=== PATIENT | female | born 1975 | race Caucasian/White ===

== ENCOUNTER → 2016-06-16 | Outpatient (CLI) | payer BC ==
[~2016-06-16] MED LIST: CETICHW4 PO; FLUT0.15 NAE; SERT-234 PO
[2016-06-16 16:43] LABS: BLOOD UREA NITROGEN 16 mg/dl (7-18); CALCIUM 8.7 mg/dl (8.5-10.1); CARBON DIOXIDE 27 mmol/L (21-32); CHLORIDE 108 mmol/L (98-107); CREATININE 0.74 mg/dl (0.60-1.20); GLUCOSE 87 mg/dl (70-99); POTASSIUM 4.5 mmol/L (3.5-5.1); SODIUM 140 mmol/L (136-145)
[2016-06-16 16:54] LABS: CHOLESTEROL 146 mg/dl (0-200); CHOLESTEROL/HDL RATIO 3.3; HDL CHOLESTEROL 44 mg/dl; LDL CHOLESTEROL CALCULATED 91 mg/dl; THYROID STIMULATING HORMONE 0.651 uIu/ml (0.300-4.500); TRIGLYCERIDES 53 mg/dl (0-150); VERY LOW DENSITY LIPOPROT CALC 11 mg/dl
== END | disposition home or self-care (01) ==
LOC: C.LABBFT 11:13
PROVIDERS: ATTEND Nurse Practitioner
DX: Z13.220 Encounter for screening for lipoid disorders (principal); H81.09 Meniere's disease, unspecified ear; R00.2 Palpitations

== ENCOUNTER → 2016-07-11 | Outpatient (CLI) | payer BC | END | disposition home or self-care (01) | LOC: C.PAPS 15:05 | PROVIDERS: ATTEND Nurse Practitioner | DX: Z01.419 Encounter for gynecological examination (general) (routine) without abnormal findings (principal) ==

== ENCOUNTER 2022-11-28 09:43 | Observation (INO) ==
--- NOTE | 2022-11-28 10:13 | Emergency Department Note ---
History of Present Illness General Chief complaint: Tachycardia Stated complaint: HIGH HR,FEELS "OFF",LIGHTHEADED,MIGRAINE, Time Seen by Provider: 11/28/22 09:52 History of Present Illness Maximum Pain Intensity: 5 46-year-old female presents emergency department with 1 day history of feeling under stress and light rotation and some nasal congestion and a sided slight headache. Patient denies fever. Patient states that she was under a lot of stress at work as they were understaffed. Patient is a [employer]. Patient denies any exposure to COVID. Patient denies abdominal pain denies chest pain denies significant shortness of breath. Patient was concerned due to palpitations and nasal congestion and being under stress. Home Medications Medication Instructions Recorded Confirmed Type triamcinolone acetonide 0.1 % See Rx Instructions topical BID 11/13/19 11/28/22 Rx topical cream PRN rash #30 grams fluticasone propionate 50 2 spray intranasal DAILY #9.9 grams 11/19/20 11/28/22 Rx mcg/actuation nasal spray,suspension (Allergy Relief (fluticasone)) hydroxyzine HCl 25 mg tablet See Rx Instructions PO TID PRN 06/27/22 11/28/22 Rx anxiety #90 tabs albuterol sulfate 90 mcg/actuation 2 puff inhalation QID PRN 08/07/22 11/28/22 Rx aerosol inhaler (ProAir HFA) shortness of breath #8.5 grams sertraline 100 mg tablet 100 mg PO DAILY #90 tabs 09/07/22 11/28/22 Rx acetaminophen 500 mg tablet 1,000 mg PO Q6H PRN Fever Or Pain 11/28/22 11/28/22 History (Tylenol Extra Strength) cetirizine 10 mg tablet (Zyrtec) 10 mg PO DAILY 11/28/22 11/28/22 History ibuprofen 200 mg tablet 400 mg PO Q6H PRN Fever Or Pain 11/28/22 11/28/22 History norethindrone 1.5 mg-ethinyl 1 tab PO DAILY 11/28/22 11/28/22 History estradiol 30 mcg(21)/iron 75 mg(7) tablet (Haley Fe 1.5/30 (28)) Allergies Allergy/AdvReac Type Severity Reaction Status Date / Time morphine Allergy Intermediate rash Verified 11/28/22 12:15 Past Med/Surg History Medical History Anxiety Asthma mild, w/ cold or allergy symptoms, rarely uses inhaler maybe once per year Dyshidrotic eczema Environmental and seasonal allergies Palpitations thinks was due to medication, wore holter monitor, no issues found Surgical History History of appendectomy History of carpal tunnel surgery History of foot surgery B/L Hx of colonoscopy Hx of tubal ligation Hx of wisdom tooth extraction Family History Mother Coronary heart disease Hypertension Myocardial infarction Father Cirrhosis with alcoholism Other No family history of adverse response to anesthesia Denies family history of Ovarian cancer Prostate cancer Breast cancer Colonic polyp Social History Smoking Status: Never smoker Second Hand Exposure: No; Do You Dip or Chew Tobacco: No; Hx Alcohol Use: Yes (ONCE PER MONTH) Hx Substance Use: No Preferred Language: Hebrew Communication Ability: Effective Hepatologist Required: No Beliefs That Will Affect Care: None marital status: Current Living Situation: Spouse current occupational status: employed Feels Safe at Home: Yes caffeine: Yes Dental Care, Regularly: Yes Assistive Devices: Glasses Review of Systems A total of 10 systems reviewed and were otherwise negative Constitutional: + chills and + body aches Cardiovascular: + palpitations Physical Exam Vital Signs Vital Signs - 24 hr 11/28/22 09:48 11/28/22 10:09 11/28/22 10:11 Temperature 37.1 C Temperature Source Temporal Artery Scan Pulse Rate 120 H 107 H Pulse Rate from SpO2 Sensor Pulse Rhythm Regular Respiratory Rate 20 Respiratory Depth Normal Blood Pressure 113/71 Blood Pressure Mean 85 Pulse Oximetry 98 Oxygen Delivery Method Room Air Room Air Sepsis Recent Fever Within 48 Hours No Sepsis New/Unexplained Change in Mental Status No Sepsis Action Taken by Nursing No Action Required 11/28/22 10:11 11/28/22 10:11 11/28/22 10:11 Temperature Temperature Source Oral Pulse Rate Pulse Rate from SpO2 Sensor Pulse Rhythm Respiratory Rate Respiratory Depth Blood Pressure Blood Pressure Mean Pulse Oximetry Oxygen Delivery Method Room Air Room Air Sepsis Recent Fever Within 48 Hours Sepsis New/Unexplained Change in Mental Status Sepsis Action Taken by Nursing 11/28/22 12:13 Temperature Temperature Source Pulse Rate 106 H Pulse Rate from SpO2 Sensor 106 H Pulse Rhythm Respiratory Rate 19 Respiratory Depth Blood Pressure 134/67 Blood Pressure Mean 89 Pulse Oximetry 97 Oxygen Delivery Method Sepsis Recent Fever Within 48 Hours Sepsis New/Unexplained Change in Mental Status Sepsis Action Taken by Nursing GENERAL: Patient is awake alert in no acute distress patient is resting comfortably; patient is anxious EYES: The conjunctivae are clear. The pupils are round and reactive. EARS, NOSE, MOUTH AND THROAT: The nose is without any evidence of any deformity. Mucous membranes are moist. Tongue is midline. Patient has rhinorrhea NECK: The neck is nontender and supple. RESPIRATORY: Normal respiratory effort is noted there is no evidence of wheezing rhonchi or rales CARDIOVASCULAR: Tachycardic but normal rhythm noted there no murmurs rubs or gallops normal S1 normal S2. GASTROINTESTINAL: The abdomen is soft. Abdomen is nontender. BACK: No midline tenderness or or step-off noted range of motion in flexion extension as well as rotation no signs of muscle spasm noted MUSCULOSKELETAL/EXTREMITIES: There is no evidence of gross deformity full range of motion is noted in the hips and shoulders. SKIN: There is no obvious evidence of any rash. There are no petechiae, pallor or cyanosis noted. NEUROLOGIC: Patient is awake alert and oriented x3 strength is symmetric Course Reevaluation(s) Reevaluation #1: Patient is resting in no distress on repeat examination. Time: 12:11 Consultations Consultation #1: Case was discussed with the [facility]ist for admission Time: 12:11 Administered Medications Potassium Chloride (K Antonino / Wtr) 10 meq in 100 mls @ 100 mls/hr IV Q1H [facility] Stop: 11/28/22 14:14 Last Admin: 11/28/22 12:27 Dose: 100 mls/hr Documented By: GRICEL Discontinued Medications Aspirin (Aspirin Chew 324 Mg) 324 mg PO NOW STA Stop: 11/28/22 12:00 Last Admin: 11/28/22 12:08 Dose: 324 mg Documented By: GRICEL Ioversol (Ioversol 350 Mg 125ml Prefilled Syringe) 118 ml IV ONCE ONE Stop: 11/28/22 11:38 Last Admin: 11/28/22 11:38 Dose: 118 ml Documented By: MARISELA Potassium Chloride (Potassium Chloride Crtab 20 Meq Tabcr) 40 meq PO NOW STA Stop: 11/28/22 12:15 Last Admin: 11/28/22 12:21 Dose: 40 meq Documented By: GRICEL Critical Care Time Critical Care Time: Yes Total Critical Care Time: 35 I have personally spent greater than 35 minutes of critical care time in the direct management of this patient. This includes bedside care, interpretation of diagnostic studies, and testing, discussion with consultants, patient, and family members, and other required patient management activities. These minutes are in excess of all separately billable procedures. Medical Decision Making Medical Records Attestation: I reviewed the patient's medical records. Home Medications Current Medication List: was personally reviewed by me Laboratory Data Attestation: I reviewed the patient's lab results. Patient has a mildly low potassium, patient has an elevated troponin and an elevated D-dimer 11/28/22 09:59 11/28/22 09:59 Lab Results 11/28/22 11/28/22 11/28/22 Range/Units 09:59 09:59 09:59 WBC 6.51 (4.8-10.8) K/ul RBC 4.51 (4.20-5.40) M/uL Hgb 13.5 (12.0-16.0) g/dl Hct 40.2 (37.0-47.0) % MCV 89.1 (80.0-100.0) fL MCH 29.9 (25.0-34.0) pg MCHC 33.6 (32.0-36.0) g/dL RDW Std Deviation 41.5 (36.4-46.3) fL RDW Coeff of Felicia 12.7 (11.5-14.5) % Plt Count 177 (130-400) K/uL MPV 10.3 (9.4-12.4) fL Immature Gran % (Auto) 0.3 % Neut % (Auto) 83.9 % Lymph % (Auto) 10.4 % [place] % (Auto) 5.1 % Eos % (Auto) 0.0 % Baso % (Auto) 0.3 % Neut # (Auto) 5.46 (1.40-6.50) K/uL Lymph # (Auto) 0.68 L (1.20-3.40) K/uL [place] # (Auto) 0.33 (0.11-0.59) K/uL Eos # (Auto) 0.00 (0.00-0.50) K/uL Baso # (Auto) 0.02 (0.00-0.20) K/uL Immature Gran # (Auto) 0.02 (0.01-0.20) K/uL PT 10.5 (9.0-12.0) Seconds INR 1.0 (0.9-1.1) APTT 27.1 (21.0-31.0) Seconds PTT Ratio 1.0 D-Dimer 6900 H* (0-500) ug/L FEU Sodium 135 L (136-145) mmol/L Potassium 3.2 L (3.5-5.1) mmol/L Chloride 102 (98-107) mmol/L Carbon Dioxide 24 (21-32) mmol/L Anion Gap 9 (3-11) BUN 5 L (6-23) mg/dl Creatinine 0.64 (0.6-1.2) mg/dl Est Cr Clr Drug Dosing 118.6 ml/min Est GFR ( Amer) 124.9 ml/min Est GFR (Non-Af Amer) 107.8 ml/min BUN/Creatinine Ratio 7.8 L (10-20) Glucose 114 H (70-99(Fasting)) mg/dl Lactate (0.4-2.0) mmol/L Calcium 9.0 (8.6-10.3) mg/dl Magnesium (1.7-2.4) mg/dl Total Bilirubin 0.4 (0.2-1.0) mg/dl AST 27 (13-39) U/L ALT 24 (7-52) U/L Alkaline Phosphatase 83 (34-104) U/L Troponin I High Sens 280.7 H* (0-14) pg/ml Total Protein 7.6 (6.0-8.3) gm/dl Albumin 4.2 (3.4-5.0) gm/dl Globulin 3.4 (2.5-4.0) gm/dl Albumin/Globulin Ratio 1.2 (0.9-2) TSH (0.300-4.500) uIu/ml SARS-CoV-2, RNA, NAAT (NEGATIVE) 11/28/22 11/28/22 11/28/22 Range/Units 09:59 09:59 10:00 WBC (4.8-10.8) K/ul RBC (4.20-5.40) M/uL Hgb (12.0-16.0) g/dl Hct (37.0-47.0) % MCV (80.0-100.0) fL MCH (25.0-34.0) pg MCHC (32.0-36.0) g/dL RDW Std Deviation (36.4-46.3) fL RDW Coeff of Felicia (11.5-14.5) % Plt Count (130-400) K/uL MPV (9.4-12.4) fL Immature Gran % (Auto) % Neut % (Auto) % Lymph % (Auto) % [place] % (Auto) % Eos % (Auto) % Baso % (Auto) % Neut # (Auto) (1.40-6.50) K/uL Lymph # (Auto) (1.20-3.40) K/uL [place] # (Auto) (0.11-0.59) K/uL Eos # (Auto) (0.00-0.50) K/uL Baso # (Auto) (0.00-0.20) K/uL Immature Gran # (Auto) (0.01-0.20) K/uL PT (9.0-12.0) Seconds INR (0.9-1.1) APTT (21.0-31.0) Seconds PTT Ratio D-Dimer (0-500) ug/L FEU Sodium (136-145) mmol/L Potassium (3.5-5.1) mmol/L Chloride (98-107) mmol/L Carbon Dioxide (21-32) mmol/L Anion Gap (3-11) BUN (6-23) mg/dl Creatinine (0.6-1.2) mg/dl Est Cr Clr Drug Dosing ml/min Est GFR ( Amer) ml/min Est GFR (Non-Af Amer) ml/min BUN/Creatinine Ratio (10-20) Glucose (70-99(Fasting)) mg/dl Lactate 1.0 (0.4-2.0) mmol/L Calcium (8.6-10.3) mg/dl Magnesium (1.7-2.4) mg/dl Total Bilirubin (0.2-1.0) mg/dl AST (13-39) U/L ALT (7-52) U/L Alkaline Phosphatase (34-104) U/L Troponin I High Sens (0-14) pg/ml Total Protein (6.0-8.3) gm/dl Albumin (3.4-5.0) gm/dl Globulin (2.5-4.0) gm/dl Albumin/Globulin Ratio (0.9-2) TSH 0.804 (0.300-4.500) uIu/ml SARS-CoV-2, RNA, NAAT NEGATIVE (NEGATIVE) 11/28/22 Range/Units 12:14 WBC (4.8-10.8) K/ul RBC (4.20-5.40) M/uL Hgb (12.0-16.0) g/dl Hct (37.0-47.0) % MCV (80.0-100.0) fL MCH (25.0-34.0) pg MCHC (32.0-36.0) g/dL RDW Std Deviation (36.4-46.3) fL RDW Coeff of Felicia (11.5-14.5) % Plt Count (130-400) K/uL MPV (9.4-12.4) fL Immature Gran % (Auto) % Neut % (Auto) % Lymph % (Auto) % [place] % (Auto) % Eos % (Auto) % Baso % (Auto) % Neut # (Auto) (1.40-6.50) K/uL Lymph # (Auto) (1.20-3.40) K/uL [place] # (Auto) (0.11-0.59) K/uL Eos # (Auto) (0.00-0.50) K/uL Baso # (Auto) (0.00-0.20) K/uL Immature Gran # (Auto) (0.01-0.20) K/uL PT (9.0-12.0) Seconds INR (0.9-1.1) APTT (21.0-31.0) Seconds PTT Ratio D-Dimer (0-500) ug/L FEU Sodium (136-145) mmol/L Potassium (3.5-5.1) mmol/L Chloride (98-107) mmol/L Carbon Dioxide (21-32) mmol/L Anion Gap (3-11) BUN (6-23) mg/dl Creatinine (0.6-1.2) mg/dl Est Cr Clr Drug Dosing ml/min Est GFR ( Amer) ml/min Est GFR (Non-Af Amer) ml/min BUN/Creatinine Ratio (10-20) Glucose (70-99(Fasting)) mg/dl Lactate (0.4-2.0) mmol/L Calcium (8.6-10.3) mg/dl Magnesium 1.8 (1.7-2.4) mg/dl Total Bilirubin (0.2-1.0) mg/dl AST (13-39) U/L ALT (7-52) U/L Alkaline Phosphatase (34-104) U/L Troponin I High Sens 243.6 H* (0-14) pg/ml Total Protein (6.0-8.3) gm/dl Albumin (3.4-5.0) gm/dl Globulin (2.5-4.0) gm/dl Albumin/Globulin Ratio (0.9-2) TSH (0.300-4.500) uIu/ml SARS-CoV-2, RNA, NAAT (NEGATIVE) Imaging Data Attestation: I personally reviewed and interpreted this imaging study as follows: My Impression: Chest x-ray interpreted by me negative for infiltrate Radiologist's Impression: Chest X-Ray 11/28/22 09:51 XR chest 1V portable HISTORY: Chest pain, nonspecific COMPARISON: None. FINDINGS: The lungs are clear. Cardiac silhouette is normal in size. No pleural effusions. No pneumothorax. IMPRESSION: No acute process. ACT 112: Negative or not required by law. Electronically signed by: Fermin Blanco M.D. 11/28/2022 10:33 AM Chest CTA 11/28/22 11:08 CT angio chest PE protocol CLINICAL HISTORY: PE TECHNIQUE: Multidetector row helical CT of the chest was performed with angiographic protocol. Coronal and sagittal reformations were obtained. Coronal and sagittal MIPS were obtained from the axial data set and were submitted for review. Automated dose lowering techniques and/or adjustment according to patient size were utilized for this exam. CT DOSE: 581.12 mGy.cm Comparison: Comparison is made to chest radiograph 11/28/2022 FINDINGS: Lungs and pleura: Normal. Heart and pericardium: Heart size is normal. No pericardial effusion. Vessels: No evidence of pulmonary embolism. Mediastinum and [place]: Unremarkable. Chest wall and lower neck: Unremarkable. Abdomen: Unremarkable. Bones: Unremarkable. IMPRESSION: No acute abnormality and in particular no evidence of pulmonary embolus. ACT 112: Negative or not required by law. Electronically signed by: Wyatt Oakley M.D. 11/28/2022 11:54 AM ECG Data Attestation: I personally reviewed and interpreted this ECG as follows: Additional Comments: EKG interpreted by me sinus tachycardia rate of 107, normal's, normal axis, no obvious ST segment elevation or depression Telemetry was ordered by me interpreted as sinus tachycardia rate of 107 MDM Narrative Medical decision making differential diagnosis includes cardiac dysrhythmia, electrolyte abnormality, viral syndrome, upper respiratory tract infection, COVID, cardiac event, anxiety Plan is to check sepsis labs, EKG, troponin, D-dimer Patient has an elevated troponin and elevated D-dimer however has a CT angio that is negative for pulmonary embolism Patient has an EKG that sinus tach however there is no obvious ST segment elevation or depression, the etiology of the elevated troponin is unknown may be due to demand ischemia Plan is to admit, patient was given an aspirin HEART score is 3 Impression & Plan Sinus tachycardia, Palpitations, Elevated troponin Discharge Plan Visit Data Chief Complaint: Tachycardia Stated Complaint: HIGH HR,FEELS "OFF",LIGHTHEADED,MIGRAINE, ED Provider: David Rich Discharge Problem: Sinus tachycardia, Palpitations, Elevated troponin Patient Disposition: Admitted As Inpatient Discharge Instructions Interventions: ED Discharge Assessment Last Done: 11/28/22 12:38
[2022-11-28 10:24] LABS: Basophils # (auto) 0.02 K/uL (0.00-0.20); Basophils % (auto) 0.3 %; Hematocrit (blood only) 40.2 % (37.0-47.0); Hemoglobin 13.5 g/dl (12.0-16.0); Immature Granulocytes # (auto) 0.02 K/uL (0.01-0.20); Immature Granulocytes % (auto) 0.3 %; Lymphocytes # (auto) 0.68 K/uL (1.20-3.40); Lymphocytes % (auto) 10.4 %; Mean Corpuscular Hemoglobin 29.9 pg (25.0-34.0); Mean Corpuscular Hgb Conc 33.6 g/dL (32.0-36.0); Mean Corpuscular Volume 89.1 fL (80.0-100.0); Mean Platelet Volume 10.3 fL (9.4-12.4); Monocytes # (auto) 0.33 K/uL (0.11-0.59); Monocytes % (auto) 5.1 %; Neutrophils # (auto) 5.46 K/uL (1.40-6.50); Neutrophils % (auto) 83.9 %; Platelet Count 177 K/uL (130-400); RDW Coefficient of Variation 12.7 % (11.5-14.5); RDW Standard Deviation 41.5 fL (36.4-46.3); Red Blood Count 4.51 M/uL (4.20-5.40); White Blood Count 6.51 K/ul (4.8-10.8)
--- NOTE | 2022-11-28 10:34 | XRay Report ---
XR chest 1V portable HISTORY: Chest pain, nonspecific COMPARISON: None. FINDINGS: The lungs are clear. Cardiac silhouette is normal in size. No pleural effusions. No pneumot horax. IMPRESSION: No acute process. ACT 112: Negative or not required by law. Electronically signed by: Fermin Blanco M.D. 11/28/2022 10:33 AM
[2022-11-28 10:44] LABS: Alanine Aminotransferase 24 U/L (7-52); Albumin Globulin Ratio 1.2 (0.9-2); Albumin Level 4.2 gm/dl (3.4-5.0); Alkaline Phosphatase 83 U/L (34-104); Anion Gap 9 (3-11); Aspartate Aminotransferase 27 U/L (13-39); BUN Creatinine Ratio 7.8 (10-20); Bilirubin,Total 0.4 mg/dl (0.2-1.0); Blood Urea Nitrogen 5 mg/dl (6-23); Carbon Dioxide 24 mmol/L (21-32); Chloride 102 mmol/L (98-107); Creatinine Clr Calc Pharmacy 118.6 ml/min; Est GFR (African American) 124.9 ml/min; Est GFR (Non-African American) 107.8 ml/min; Globulin 3.4 gm/dl (2.5-4.0); Glucose 114 mg/dl (70-99(Fasting)); Potassium 3.2 mmol/L (3.5-5.1); Sodium 135 mmol/L (136-145); Total Protein 7.6 gm/dl (6.0-8.3)
[2022-11-28 10:58] LABS: Troponin I High Sensitivity 280.7 pg/ml (0-14)
[2022-11-28 11:01] LABS: Partial Thromboplastin Time 27.1 Seconds (21.0-31.0); Prothrombin Time 10.5 Seconds (9.0-12.0)
[2022-11-28 11:04] LABS: D Dimer 6900 ug/L FEU (0-500)
[2022-11-28] MEDS ORDERED: IOVERSOL 350 MG 125mL Prefilled Syringe IV ONE (11:37)
--- NOTE | 2022-11-28 11:56 | CT Scan Report ---
CT angio chest PE protocol CLINICAL HISTORY: PE TECHNIQUE: Multidetector row helical CT of the chest was performed with angiographic protocol. [place] l and sagittal reformations were obtained. Coronal and sagittal MIPS were obtained from the axial gail a set and were submitted for review. Automated dose lowering techniques and/or adjustment according to patient size were utilized for this exam. CT DOSE: 581.12 mGy.cm Comparison: Comparison is made to chest radiograph 11/28/2022 FINDINGS: Lungs and pleura: Normal. Heart and pericardium: Heart size is normal. No pericardial effusion. Vessels: No evidence of pulmonary embolism. Mediastinum and [place]: Unremarkable. Chest wall and lower neck: Unremarkable. Abdomen: Unremarkable. Bones: Unremarkable. IMPRESSION: No acute abnormality and in particular no evidence of pulmonary embolus. ACT 112: Negative or not required by law. Electronically signed by: Wyatt Oakley M.D. 11/28/2022 11:54 AM
[2022-11-28] MEDS ORDERED: ASPIRIN CHEW 324 MG PO STA (11:59)
[2022-11-28] MEDS ORDERED: POTASSIUM CHLORIDE CRTAB 20 MEQ TABCR PO STA (12:14)
--- NOTE | 2022-11-28 12:19 | History & Physical Report ---
Date of Service November 28, 2022 Assessment & Plan (1) Elevated troponin: Plan: -Admit to med/tele -Currently stable with HR in the high 90's- low 100's -Initial high sen trop elevated at 280, repeat 2 hour trop at 240 -ECG shows sinus tachycardia without acute ST segment or t-wave changes -At this time the etiology of her elevated trop appears more associated with demand than ACS -CTA of the chest was negative for PE, no ischemic changes on ECG, patient's tr op is trending down -S/P 324 mg Aspirin in the ED -Patient with minimal chest tightness in the left upper chest at this time -Will obtain STAT TTE for further assessment -Will consult cardiology for further assistance and need for possible stress test -Will place 0.25 inches of 2% nitroglycerine paste to see if this gives her relief of her chest tightness -Continue to monitor on tele, will continue to trend trops in 6 hours to ensure it's still downtrending -SQ lovenox for DVT PPX -HH diet -AM CBC, BMP, PT/INR (2) Sinus tachycardia: Plan: -Has been in sinus tachycardia with HR in the high 90's-120's since arrival -Unsure of the etiology at this time but the differential includes, dehydration, hypokalemia, ACS, CHF, discomfort due to headache/migraine, and anxiety -Potassium found to be 3.2, mag obtained on admission is 1.8 -TSH added on admission is in process, nikita follow up -Will give 40 meq PO KCL and 10 meq IV KCL x 2 doses now -Will also give 2gm IV mag sulfate for low-normal mag level, hypokalemia, and migraine -Will order 1L LR bolus now and allow her to eat -Monitor on tele, will follow up on TTE (3) Headache: Plan: -Likely due to stress, will obtain full respiratory biofire for further evaluation -No focal neuro defects on exam and patient denies other neurologic symptoms -Will give 650 mg PO Tylenol, 2gm IV mag sulfate, and 1L LR, monitor for improvement (4) Hypokalemia: Plan: -3.2 in the ED -Unsure of etiology, may be due to poor oral intake as she is not on diuretics -Will give 10 meq IV KCL x 2 doses and 40 meq PO KCL on admission -Will give 2gm IV mag sulfate on admission -Monitor am electrolytes (5) Symptomatic menopausal or female climacteric states: Plan: -Continue control for menopausal symptoms (6) Asthma: Plan: -Prn Xopenex for wheezing to prevent further tachycardia for now (7) Anxiety: Plan: -Continue sertraline Plan The patient was discussed with Dr. Talbert at the time of the admission History of Present Illness Chief Complaint: Tachycardia, URI symptoms Primary Care Provider: BRYSON Hernandez Katja is a 46 year old female with a PMH significant for asthma, ADHD, anxiety, and meniere's disease who presented to the [facility] ED on 11/28 with complaints of generalized fatigue, chills, and palpitations. In the ED the patient was noted to be tachycardic with HR in the 120's but otherwise stable. Labs were significant for a lymphocyte count of 0.65, D-Dimer of 6900, potassium of 3.2, and initial high sen trop of 280. Chest xray was read as "No acute process.". CTA of the chest with PE protocol was read as "No acute abnormality and in particular no evidence of pulmonary embolus.". ECG showed sinus tachycardia without acute ST segment or T-wave changes. Prior to admission the patient was given 324 mg Aspirin. We were asked to admit the patient for ongoing evaluation and treatment of tachycardia and elevated troponin level. At the time of the exam the patient was sitting in bed in no acute distress. She states that she has been more stressed recently as she has been very busy at work as a [employer], they have been understaffed. She started to develop what she describes as a left sided headache/migraine approximately 24 hours ago. Her headache is located on the left front aspect of her head. She has been nauseous at times but denies vomiting. She denies changes in vision, hearing, taste, and smell. She denies recent vision changes and paresthesias. She has noticed her headache moving down into her left neck but denies radiation of the pain anywhere else. She has used tylenol and ibuprofen for her pain with minimal improvement. She feels as though this headache/migraine is more severe than her normal ones. She started to develop heart palpitations/tachycardia which began last night. She states that while these palpitations occurred she experienced left-sided chest tightness/discomfort. She is unsure if the left-sided neck pain is related to her headache or chest discomfort. She currently has mild, 1-2, chest tightness in the left chest at this time. She denies a previous hx of cardiac disease, palpitations, or hx of sudden cardiac before the age of 50 in her family. She denies alcohol and tobacco use as well. Her only recent medication change is an increase in the dose of her control approximately 3 weeks ago. This is to help with controlling hot flashes. Please refer to Dr. Talbert's attestation for any changes to the treatment plan Allergies Allergy/AdvReac Type Severity Reaction Status Date / Time morphine Allergy Intermediate rash Verified 11/28/22 12:15 Home Medications Medication Instructions Recorded Confirmed Type triamcinolone acetonide 0.1 % See Rx Instructions topical BID 11/13/19 11/28/22 Rx topical cream PRN rash #30 grams fluticasone propionate 50 2 spray intranasal DAILY #9.9 grams 11/19/20 11/28/22 Rx mcg/actuation nasal spray,suspension (Allergy Relief (fluticasone)) hydroxyzine HCl 25 mg tablet See Rx Instructions PO TID PRN 06/27/22 11/28/22 Rx anxiety #90 tabs albuterol sulfate 90 mcg/actuation 2 puff inhalation QID PRN 08/07/22 11/28/22 Rx aerosol inhaler (ProAir HFA) shortness of breath #8.5 grams sertraline 100 mg tablet 100 mg PO DAILY #90 tabs 09/07/22 11/28/22 Rx acetaminophen 500 mg tablet 1,000 mg PO Q6H PRN Fever Or Pain 11/28/22 11/28/22 History (Tylenol Extra Strength) cetirizine 10 mg tablet (Zyrtec) 10 mg PO DAILY 11/28/22 11/28/22 History ibuprofen 200 mg tablet 400 mg PO Q6H PRN Fever Or Pain 11/28/22 11/28/22 History norethindrone 1.5 mg-ethinyl 1 tab PO DAILY 11/28/22 11/28/22 History estradiol 30 mcg(21)/iron 75 mg(7) tablet (Haley Fe 1.5/30 (28)) Past Med/Surg History Medical History Anxiety Asthma mild, w/ cold or allergy symptoms, rarely uses inhaler maybe once per year Dyshidrotic eczema Environmental and seasonal allergies Palpitations thinks was due to medication, wore holter monitor, no issues found Surgical History History of appendectomy History of carpal tunnel surgery History of foot surgery B/L Hx of colonoscopy Hx of tubal ligation Hx of wisdom tooth extraction Family History Mother Coronary heart disease Hypertension Myocardial infarction Father Cirrhosis with alcoholism Other No family history of adverse response to anesthesia Denies family history of Ovarian cancer Prostate cancer Breast cancer Colonic polyp Social History Smoking Status: Never smoker Second Hand Exposure: No; Do You Dip or Chew Tobacco: No; Hx Alcohol Use: Yes (ONCE PER MONTH) Hx Substance Use: No Preferred Language: Icelandic Communication Ability: Effective Grain Loader Required: No Beliefs That Will Affect Care: None marital status: Current Living Situation: Spouse current occupational status: employed Feels Safe at Home: Yes caffeine: Yes Dental Care, Regularly: Yes Assistive Devices: Glasses Physical Exam Physical Exam: Physical Exam: General: In no acute distress, stated age, well-nourished, good hygiene HEENT: Normocephalic, atraumatic, no scleral icterus, pupils around round, symmetrical, and reactive to light, no tenderness to palpation of the frontal or maxillary sinuses, moist mucus membranes, trachea midline, no thyromegaly Chest/Pulm: No respiratory distress, symmetrical chest expansion, clear breath sounds throughout Cardiac: RRR, no murmurs noted Abdomen: Negative for ascites and bruising, normoactive bowel sounds, soft, non-tender to palpation throughout Musculoskeletal: Symmetrical and without signs of acute trauma, upper and lower extremities with full ROM, no atrophy, spasticity, or flaccidity Extremities: Radial, dorsalis pedis, and posterior tibial pulses are intact and symmetrical, no edema noted in the BL LE's Skin: Warm, dry, no rashes , lesions, or scars noted Neuro: Alert and oriented to person, place, month, year, and president, no focal defects, CN II-XII tested and intact, patient did experience an intermittent episode of vertigo during EOM testing, finger to nose test negative, no tremors noted Psych: No acute distress, calm and cooperative during the exam Results & Data Results & Data Vital Signs (Past 12 Hours) Vital Signs Temp Pulse Resp BP Pulse Ox O2 Del Method 11/28/22 10:11 Room Air 11/28/22 10:11 Room Air 11/28/22 10:11 Room Air 11/28/22 10:09 107 H 11/28/22 09:48 37.1 C 120 H 20 113/71 98 Room Air Laboratory Results Abnormal lab results 11/28/22 11/28/22 11/28/22 Range/Units 09:59 09:59 09:59 Lymph # (Auto) 0.68 L (1.20-3.40) K/uL D-Dimer 6900 H* (0-500) ug/L FEU Sodium 135 L (136-145) mmol/L Potassium 3.2 L (3.5-5.1) mmol/L BUN 5 L (6-23) mg/dl BUN/Creatinine Ratio 7.8 L (10-20) Glucose 114 H (70-99(Fasting)) mg/dl Troponin I High Sens 280.7 H* (0-14) pg/ml 11/28/22 Range/Units 12:14 Lymph # (Auto) (1.20-3.40) K/uL D-Dimer (0-500) ug/L FEU Sodium (136-145) mmol/L Potassium (3.5-5.1) mmol/L BUN (6-23) mg/dl BUN/Creatinine Ratio (10-20) Glucose (70-99(Fasting)) mg/dl Troponin I High Sens 243.6 H* (0-14) pg/ml Diagnostic Findings Chest X-Ray 11/28/22 09:51 XR chest 1V portable HISTORY: Chest pain, nonspecific COMPARISON: None. FINDINGS: The lungs are clear. Cardiac silhouette is normal in size. No pleural effusions. No pneumothorax. IMPRESSION: No acute process. ACT 112: Negative or not required by law. Electronically signed by: Fermin Blanco M.D. 11/28/2022 10:33 AM Chest CTA 11/28/22 11:08 CT angio chest PE protocol CLINICAL HISTORY: PE TECHNIQUE: Multidetector row helical CT of the chest was performed with angiographic protocol. Coronal and sagittal reformations were obtained. Coronal and sagittal MIPS were obtained from the axial data set and were submitted for review. Automated dose lowering techniques and/or adjustment according to patient size were utilized for this exam. CT DOSE: 581.12 mGy.cm Comparison: Comparison is made to chest radiograph 11/28/2022 FINDINGS: Lungs and pleura: Normal. Heart and pericardium: Heart size is normal. No pericardial effusion. Vessels: No evidence of pulmonary embolism. Mediastinum and [place]: Unremarkable. Chest wall and lower neck: Unremarkable. Abdomen: Unremarkable. Bones: Unremarkable. IMPRESSION: No acute abnormality and in particular no evidence of pulmonary embolus. ACT 112: Negative or not required by law. Electronically signed by: Wyatt Oakley M.D. 11/28/2022 11:54 AM ECG Additional Comments: Sinus tachycardia Otherwise normal ECG No previous ECGs available Code Status & VTE Plan Code Status Full code VTE Prophylaxis Plan VTE Prophylaxis will be ordered: Yes Supervising Physician Co-Signing Physician Notes Patient seen and examined, chart reviewed, case discussed with Leo Aj PA-C and I agree with the assessment and plan as above except as otherwise noted Labs and images reviewed 46-year-old female history of asthma, ADHD, Mnire's disease who presents with fever, chills, palpitations. Sinus tachycardia. Elevated D-dimer and troponin on admission. CT with no evidence of PE. EKG without ST segment or T wave changes. Patient recommended for admission for cardiac evaluation and echo. Patient reports that she has been under increased stress at work. Developed a left-sided headache which extended into her left head and neck and then subsequ ently developed chest pain. No vision changes/neurologic deficits. Notes that pain is worsened by taking a deep breath which causes her to cough, no sputum production. Last night had palpitations with left-sided chest discomfort.? Viral illness, low overall suspicion for ACS. Patient reports at time of admitting exam pain has greatly improved but was still 12/10. No tobacco use. No family history of early ME. Lungs are clear, heart rate is slightly tachycardic and regular. No lower extremity edema. Agree with recommendations as above including continued ischemic assessment for elevated troponin and chest pain. Echo is pending, cardiology consulted. Agree with recommendations and management as above PG Care Time/CCT Total # of Minutes Spent Total Time Spent with Patient: Total time spent is greater than 50% in coordination of care (as documented) at patient's floor/unit and/or counseling patient: C[place] [address] INT INP/OBS CARE 3/75MIN Patient Type Established Medical Decision Making High Complexity Diagnoses Elevated troponin R77.8 Sinus tachycardia R00.0 Headache R51.9 Hypokalemia E87.6 Symptomatic menopausal or female climacteric states N95.1 Asthma J45.909 Anxiety F41.9
[2022-11-28] MEDS ORDERED: LACTATED RINGER'S 1,000 ML IV ONE (12:21)
[2022-11-28] MEDS: POTASSIUM CHLORIDE / WTR 10 MEQ/100 ML PLCT IV SCH ×2 (12:27→13:58)
[2022-11-28] MEDS ORDERED: ACETAMINOPHEN 325 MG TAB PO STA (12:40)
[2022-11-28 12:46] LABS: Magnesium 1.8 mg/dl (1.7-2.4)
[2022-11-28 12:53] LABS: Troponin I High Sensitivity 243.6 pg/ml (0-14)
[2022-11-28] MEDS ORDERED: NITROGLYCERIN 2% OINTMENT 30GM TUBE EXT ONE (13:08)
[2022-11-28 14:30] LABS: Adenovirus PCR Not Detected (NotDetected); Bordetella parapertussis PCR Not Detected (NotDetected); Bordetella pertussis PCR Not Detected (NotDetected); Chlamydia pneumoniae PCR Not Detected (NotDetected); Coronavirus 229E PCR Not Detected (NotDetected); Coronavirus CoV-2 (COVID19)PCR Not Detected (NotDetected); Coronavirus HKU1 PCR Not Detected (NotDetected); Coronavirus NL63 PCR Not Detected (NotDetected); Coronavirus OC43PCR Not Detected (NotDetected); Human Metapneumovirus PCR Not Detected (NotDetected); Influenza A PCR Not Detected (NotDetected); Influenza B PCR Not Detected (NotDetected); Mycoplasma pneumoniae PCR Not Detected (NotDetected); Parainfluenza Virus 1 PCR Not Detected (NotDetected); Parainfluenza Virus 2 PCR Not Detected (NotDetected); Parainfluenza Virus 3 PCR Not Detected (NotDetected); Parainfluenza Virus 4 PCR Not Detected (NotDetected); Respiratory Syncytial VirusPCR Not Detected (NotDetected); Rhinovirus/Enterovirus PCR Not Detected (NotDetected)
--- NOTE | 2022-11-28 15:00 | XCELERA ---
[id number] \\[id number]
[2022-11-28] MEDS: MAGNESIUM SULFATE / D5W 1 GM/100 ML BAG IV SCH ×2 (16:11→17:14)
--- NOTE | 2022-11-28 16:31 | Cardiology Consultation ---
Date of Consultation November 28, 2022 Assessment & Plan (1) Sinus tachycardia: (2) Headache: (3) Asthma: (4) Palpitations: Plan Katja is a 46 y/o female with PMHx of Asthma, ADHD, anxiety, Meniere's disease, and Menopausal symptoms managed with OCPs (dose increased ~3 weeks ago) that comes to the ED due to chest discomfort, palpitations, and tiredness. On evaluation, she is found to be alone, ill-appearing, tired, afebrile, calm, AAOx3, and in no acute distress. Given the patient's EKG and TTE was relatively normal and only displaying sinus tachycardia, it's unlikely the patient's troponin increase came as a consequence to ACS and myocardial ischemia. Her symptoms may suggest a possible URI with impact and exacerbating her pre- existing asthma. DDx may also include asthma-induced muscle spasms and headaches. I would recommend conservative management.. Supervising Physician Co-Signing Physician Notes I saw and examined the patient with Dr. Martin and agree with the documentation above. Briefly, the patient presented with fairly diffuse symptoms including headache, fatigue, neck and chest discomfort. She also reported some sense of palpitation. She did have elevated cardiac biomarkers, but no other objective findings to suggest an acute coronary syndrome. Her history is not consistent with an acute coronary syndrome. Despite continuous chest discomfort there has been no significant change in her cardiac biomarkers. The elevation could be attributed to many factors to include a viral illness. Her echocardiogram was comforting in the fact that the overall LV function and wall motion were normal. I would treat her according to symptoms. I do not believe she requires any further cardiac evaluation. Circumstances of this nature we generally recommend activity limitation for at least 6 weeks. This would include no vigorous or strenuous aerobic activity. She has a very mild sinus tachycardia. This is not represent a primary cardiac problem given the overall normal function. Noncardiac etiologies to include pain dehydration etc. can be explored. History of Present Illness Attending Physician: Jagdeep Talbert MD History of Present Illness Katja is a 46 y/o female with PMHx of Asthma, ADHD, anxiety, Meniere's disease, and Menopausal symptoms managed with OCPs (dose increased ~3 weeks ago) that comes to the ED due to chest discomfort, palpitations, and tiredness. Yesterday morning (11/27/22) she began to have left sided headaches that are band-like and has an average of 5/10 in intensity. Associated to this she has been experiencing nausea, tiredness, left-sided chest tightness, left-sided neck tightness, and coughing that occurs when she takes a deep breath. She has tried to control her headaches using Tylenol and Ibuprofen with no success, and she tried to use her Albuterol rescue inhaler to try and relieve her chest tightness also without success. Her headache was not preceded by an aura such as vision changes or any other changes. Due to her feeling ill and her nausea, she has not been able to eat very well and has not drunk a lot of water, but has consumed amado lucas. She has been using an at-home pulse ox machine since she started feeling ill, and noticed that her pulse was ranging between 100 and 130, which prompted her to call her PCPs office to schedule and appointment for evaluation, but when she told them she was also experiencing chest discomfort, they advised her to come to the ED instead. On arrival, she was noted to be tachycardic in the 120s but was clinically stable. D-dimer was ordered due to her Hx of OCP use, which was elevated at 6900. CTA was negative for PE and CXR was negative fo r an acute process. EKG performed in the ED was also ordered which showed sinus tachycardia with a rate of 107, but no ST segment elevations or depressions or significant T wave abnormalities. Troponins were slightly elevated at 280.7 and decreased to 243.6 after a few hours. On our evaluation, patient appeared to be tired, afebrile, alert, oriented in all spheres, and in no acute distress. She referred feeling tired and took some time to gather her thoughts when she was giving her history. 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 She has no known sick contacts and has not traveled recently. Currently, she refers having some mild chest discomfort that she could not describe very accurately, but does mention it feels like some tightness similar as to what she has been feeling since yesterday. She also has a more mild form of the headache she has been experiencing since yesterday with associated nausea. She denies any history of similar chest pain/discomfort or heart disease. She also denies using any new medications or illicit substances, and has not smoked tobacco. Allergies Allergy/AdvReac Type Severity Reaction Status Date / Time morphine Allergy Intermediate rash Verified 11/28/22 12:15 Home Medications Medication Instructions Recorded Confirmed Type triamcinolone acetonide 0.1 % See Rx Instructions topical BID 11/13/19 11/28/22 Rx topical cream PRN rash #30 grams fluticasone propionate 50 2 spray intranasal DAILY #9.9 grams 11/19/20 11/28/22 Rx mcg/actuation nasal spray,suspension (Allergy Relief (fluticasone)) hydroxyzine HCl 25 mg tablet See Rx Instructions PO TID PRN 06/27/22 11/28/22 Rx anxiety #90 tabs albuterol sulfate 90 mcg/actuation 2 puff inhalation QID PRN 08/07/22 11/28/22 Rx aerosol inhaler (ProAir HFA) shortness of breath #8.5 grams sertraline 100 mg tablet 100 mg PO DAILY #90 tabs 09/07/22 11/28/22 Rx acetaminophen 500 mg tablet 1,000 mg PO Q6H PRN Fever Or Pain 11/28/22 11/28/22 History (Tylenol Extra Strength) cetirizine 10 mg tablet (Zyrtec) 10 mg PO DAILY 11/28/22 11/28/22 History ibuprofen 200 mg tablet 400 mg PO Q6H PRN Fever Or Pain 11/28/22 11/28/22 History norethindrone 1.5 mg-ethinyl 1 tab PO DAILY 11/28/22 11/28/22 History estradiol 30 mcg(21)/iron 75 mg(7) tablet (Haley Fe 1.5/30 (28)) Patient History Medical History Anxiety Asthma mild, w/ cold or allergy symptoms, rarely uses inhaler maybe once per year Dyshidrotic eczema Environmental and seasonal allergies Palpitations thinks was due to medication, wore holter monitor, no issues found Surgical History History of appendectomy History of carpal tunnel surgery History of foot surgery B/L Hx of colonoscopy Hx of tubal ligation Hx of wisdom tooth extraction Family History Mother Coronary heart disease Hypertension Myocardial infarction Father Cirrhosis with alcoholism Other No family history of adverse response to anesthesia Denies family history of Ovarian cancer Prostate cancer Breast cancer Colonic polyp Social History Smoking Status: Never smoker Second Hand Exposure: No; Do You Dip or Chew Tobacco: No; Hx Alcohol Use: Yes (ONCE PER MONTH) Hx Substance Use: No Preferred Language: Montenegrin Communication Ability: Effective 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 Physical Exam Physical Exam: General: ill-appearing, tired, afebrile, well hydrated, calm, alert, oriented in all spheres, no acute distress HEENT: SHAUN, EOM intact, anicteric sclera, no conjunctival injection, nasal congestion, no thyromegaly, trachea midline Chest: symmetric expansions with respirations, no abnormalities to percussion, no pain on palpation of chest wall, no deformity or discoloration to suggest trauma Respiratory: CTA bilaterally, no respiratory distress Cardio: RRR, no rubs/murmurs/gallops, no chest pain when sitting up vs laying down Abdominal: soft and depressible, somewhat distended, non-tender in all four quadrants, active bowel sounds, no suprapubic tenderness Extremity: no swelling and negative Homans's bilaterally, no visible deformity, no cyanosis or discoloration, no changes in temperature Skin: warm, slightly clammy skin, pink Results & Data Vital Signs (Past 12 Hours) Vital Signs Temp Pulse Resp BP Pulse Ox O2 Del Method 11/28/22 15:11 90 11/28/22 12:13 106 H 19 134/67 97 11/28/22 10:11 Room Air 11/28/22 10:11 Room Air 11/28/22 10:11 Room Air 11/28/22 10:09 107 H 11/28/22 09:48 37.1 C 120 H 20 113/71 98 Room Air Diagnostic Findings TTE (11/28/2022) - EF 60-65% - LV systolic function normal - Grade I diastolic dysfunction (abnormal relaxation pattern) - LV wall motion is normal - RV systolic pressure is normal - No significant valvular dysfunction noted ECG Indication: palpitations and tachycardia Rate (beats per minute): 107 Rhythm: sinus tachycardia PG Care Time/CCT Total # of Minutes Spent Total Time Spent with Patient: Total time spent is greater than 50% in coordination of care (as documented) at patient's floor/unit and/or counseling patient: Coding Level of Care Code 64459 IN/OBS CONSULT LVL 4,60M Diagnoses Sinus tachycardia R00.0 Headache R51.9 Asthma J45.909 Palpitations R00.2 Resident Activity Tracking Resident Involvement: Resident Care Provided Care Provided: Adult [facility] Medicine
[2022-11-28] MEDS ORDERED: MAGNESIUM SULFATE 1GM / D5W BAG IV ONE (17:13)
[2022-11-28] MEDS: ACETAMINOPHEN 325 MG TAB PO PRN (18:20)
[2022-11-28] MEDS: ENOXAPARIN INJ 40 MG/0.4 ML SYR SQ SCH (19:00)
[2022-11-28] MEDS ORDERED: BUTALBITAL/ACETAMIN/CAFFEINE TAB PO STA (21:49)
[2022-11-29] MEDS: BENZONATATE 100 MG CAPSULE PO PRN ×2 (03:09→11:18)
[2022-11-29] MEDS: ACETAMINOPHEN 325 MG TAB PO PRN ×3 (04:05→20:15)
[2022-11-29 06:35] LABS: Basophils # (auto) 0.02 K/uL (0.00-0.20); Basophils % (auto) 0.3 %; Eosinophils # (auto) 0.02 K/uL (0.00-0.50); Eosinophils % (auto) 0.3 %; Hematocrit (blood only) 34.8 % (37.0-47.0); Hemoglobin 11.8 g/dl (12.0-16.0); Immature Granulocytes # (auto) 0.02 K/uL (0.01-0.20); Immature Granulocytes % (auto) 0.3 %; Lymphocytes % (auto) 10.1 %; Mean Corpuscular Hemoglobin 30.3 pg (25.0-34.0); Mean Corpuscular Hgb Conc 33.9 g/dL (32.0-36.0); Mean Corpuscular Volume 89.2 fL (80.0-100.0); Mean Platelet Volume 10.9 fL (9.4-12.4); Monocytes # (auto) 0.38 K/uL (0.11-0.59); Monocytes % (auto) 6.4 %; Neutrophils # (auto) 4.92 K/uL (1.40-6.50); Neutrophils % (auto) 82.6 %; Platelet Count 158 K/uL (130-400); RDW Standard Deviation 42.3 fL (36.4-46.3); White Blood Count 5.96 K/ul (4.8-10.8)
[2022-11-29 06:53] LABS: Calcium 8.4 mg/dl (8.6-10.3); Creatinine Clr Calc Pharmacy 132.7 ml/min; Est GFR (African American) 129.8 ml/min; Potassium 3.3 mmol/L (3.5-5.1)
[2022-11-29 07:13] LABS: INR 0.9 (0.9-1.1); Prothrombin Time 10.4 Seconds (9.0-12.0)
[2022-11-29] MEDS: SERTRALINE HCL 100 MG TABLET PO SCH (09:06)
[2022-11-29] MEDS: CETIRIZINE HCL 10 MG TABLET PO SCH (09:07)
[2022-11-29] MEDS ORDERED: POTASSIUM CHLORIDE CRTAB 20 MEQ TABCR PO STA (10:23)
[2022-11-29] MEDS: LEVALBUTEROL 1.25 MG/3 ML NEB NEB PRN ×2 (11:26→19:54)
--- NOTE | 2022-11-29 12:55 | Cardiology Progress Note ---
Date of Service November 29, 2022 Assessment & Plan (1) Sinus tachycardia: (2) Headache: (3) Asthma: (4) Palpitations: Plan She seems to have a viral syndrome of sorts. This is manifest by upper respiratory symptoms and fever. This likely accounts for her troponin elevation as well. She had some symptoms atypical chest pain yesterday during her echocardiogram. There were no wall motion abnormalities. Overall function was normal. Markers have risen and fallen and risen and fallen again. EKG has been unremarkable. I think this is simply consistent with her viral syndrome and associated fever. I do not believe she requires any coronary evaluation at this point. Typical recommendations for myocarditis would be avoidance of strenuous cardiovascular exercise for several weeks. Admission and Anticipated Discharge Date Admission Date: November 28, 2022 Subjective This morning the patient claimed he feeling tired. She was unable to get much rest over the course of the evening. She continues to have a cough. She tries to avoid taking deep breaths as this will cause paroxysms of coughing. She is trying to avoid nebulized albuterol as this causes increase in her heart rate. Tessalon Perles appear to be suppressing cough. She did have a fever last night with associated diaphoresis. The chest pain that she had yesterday peers to have resolved except with coughing spells. Review of Systems Review of Systems: Per HPI Physical Exam Physical Exam: She is alert and oriented x3. Mood affect appear normal. She answered all questions appropriately. HEENT: Sclerae are anicteric. Pupils are equal and reactive to light and accommodation. Extraocular movements were intact. Neuro: Cranial nerves intact Lungs: Normal respiratory effort Cardiac: The rhythm was regular and heart rate was normal. Extremities: Patient has bilateral radial pulses that are equal in intensity. There is no evidence cyanosis or clubbing. There was no evidence of significant peripheral edema bilaterally. Skin: There are no rashes noted on examination today. Results & Data Vital Signs (Past 12 Hours) Vital Signs Temp Pulse Pulse Resp BP Pulse Ox O2 Del Method 11/29/22 11:35 36.7 C 98 H 18 117/77 100 Room Air 11/29/22 11:26 101 H 18 97 Room Air 11/29/22 08:00 Room Air 11/29/22 07:56 37.0 C 96 H 17 112/74 96 Room Air 11/29/22 07:26 89 11/29/22 04:59 37.4 C 11/29/22 02:31 38.7 C H 105 H 16 107/67 94 Room Air Laboratory Results Abnormal Lab Results 11/28/22 11/28/22 11/28/22 09:59 20:00 Unknown WBC RBC Hgb Hct MCV MCH MCHC RDW Std Deviation RDW Coeff of Felicia Plt Count MPV Immature Gran % (Auto) Neut % (Auto) Lymph % (Auto) Bleck[place] % (Auto) Eos % (Auto) Baso % (Auto) Neut # (Auto) Lymph # (Auto) Bleckley # (Auto) Eos # (Auto) Baso # (Auto) Immature Gran # (Auto) PT INR Sodium Potassium Chloride Carbon Dioxide Anion Gap BUN Creatinine Est Cr Clr Drug Dosing Est GFR ( Amer) Est GFR (Non-Af Amer) BUN/Creatinine Ratio Glucose Calcium Magnesium Troponin I High Sens 167.0 H* D TSH 0.804 Adenovirus (PCR) Not Detected B. pertussis DNA (PCR) Not Detected B.parapertussis DNA PCR Not Detected C. pneumoniae DNA (PCR) Not Detected Coronavirus OC43 (PCR) Not Detected Coronavirus HKU1 (PCR) Not Detected Coronavirus 229E (PCR) Not Detected SARS-CoV-2 (PCR) Not Detected Coronavirus NL63 (PCR) Not Detected Human Metapneumovir PCR Not Detected Influenza Type A (PCR) Not Detected Influenza Type B (PCR) Not Detected M. pneumoniae (PCR) Not Detected Parainfluenza 1 (PCR) Not Detected Parainfluenza 2 (PCR) Not Detected Parainfluenza 3 (PCR) Not Detected Parainfluenza 4 (PCR) Not Detected RSV (PCR) Not Detected Entero/Rhino (PCR) Not Detected 11/29/22 11/29/22 11/29/22 00:13 06:02 06:02 WBC 5.96 RBC 3.90 L Hgb 11.8 L Hct 34.8 L MCV 89.2 MCH 30.3 MCHC 33.9 RDW Std Deviation 42.3 RDW Coeff of Felicia 13.0 Plt Count 158 MPV 10.9 Immature Gran % (Auto) 0.3 Neut % (Auto) 82.6 Lymph % (Auto) 10.1 Bleckley % (Auto) 6.4 Eos % (Auto) 0.3 Baso % (Auto) 0.3 Neut # (Auto) 4.92 Lymph # (Auto) 0.60 L Bleckley # (Auto) 0.38 Eos # (Auto) 0.02 Baso # (Auto) 0.02 Immature Gran # (Auto) 0.02 PT INR Sodium Potassium Chloride Carbon Dioxide Anion Gap BUN Creatinine Est Cr Clr Drug Dosing Est GFR ( Amer) Est GFR (Non-Af Amer) BUN/Creatinine Ratio Glucose Calcium Magnesium Troponin I High Sens 222.6 H* D 506.4 H* D TSH Adenovirus (PCR) B. pertussis DNA (PCR) B.parapertussis DNA PCR C. pneumoniae DNA (PCR) Coronavirus OC43 (PCR) Coronavirus HKU1 (PCR) Coronavirus 229E (PCR) SARS-CoV-2 (PCR) Coronavirus NL63 (PCR) Human Metapneumovir PCR Influenza Type A (PCR) Influenza Type B (PCR) M. pneumoniae (PCR) Parainfluenza 1 (PCR) Parainfluenza 2 (PCR) Parainfluenza 3 (PCR) Parainfluenza 4 (PCR) RSV (PCR) Entero/Rhino (PCR) 11/29/22 11/29/22 11/29/22 06:02 06:02 11:16 WBC RBC Hgb Hct MCV MCH MCHC RDW Std Deviation RDW Coeff of Felicia Plt Count MPV Immature Gran % (Auto) Neut % (Auto) Lymph % (Auto) Bleck[place] % (Auto) Eos % (Auto) Baso % (Auto) Neut # (Auto) Lymph # (Auto) Bleck[place] # (Auto) Eos # (Auto) Baso # (Auto) Immature Gran # (Auto) PT 10.4 INR 0.9 Sodium 135 L Potassium 3.3 L Chloride 105 Carbon Dioxide 21 Anion Gap 9 BUN 4 L Creatinine 0.57 L Est Cr Clr Drug Dosing 132.7 Est GFR ( Amer) 129.8 Est GFR (Non-Af Amer) 112.0 BUN/Creatinine Ratio 7.0 L Glucose 155 H Calcium 8.4 L Magnesium 2.0 Troponin I High Sens 445.0 H* TSH Adenovirus (PCR) B. pertussis DNA (PCR) B.parapertussis DNA PCR C. pneumoniae DNA (PCR) Coronavirus OC43 (PCR) Coronavirus HKU1 (PCR) Coronavirus 229E (PCR) SARS-CoV-2 (PCR) Coronavirus NL63 (PCR) Human Metapneumovir PCR Influenza Type A (PCR) Influenza Type B (PCR) M. pneumoniae (PCR) Parainfluenza 1 (PCR) Parainfluenza 2 (PCR) Parainfluenza 3 (PCR) Parainfluenza 4 (PCR) RSV (PCR) Entero/Rhino (PCR) PG Care Time/CCT Total # of Minutes Spent Total Time Spent with Patient: Total time spent is greater than 50% in coordination of care (as documented) at patient's floor/unit and/or counseling patient: Coding Level of Care Code 18856 SUB INP/OBS CARE 2/35MIN Diagnoses Sinus tachycardia R00.0 Headache R51.9 Asthma J45.909 Palpitations R00.2
--- NOTE | 2022-11-29 12:59 | Discharge Summary ---
Date of Service November 29, 2022 Admission HPI Per Admitting Provider Katja is a 46 year old female with a PMH significant for asthma, ADHD, anxiety, and meniere's disease who presented to the [facility] ED on 11/28 with complaints of generalized fatigue, chills, and palpitations. In the ED the patient was noted to be tachycardic with HR in the 120's but otherwise stable. Labs were significant for a lymphocyte count of 0.65, D-Dimer of 6900, potassium of 3.2, and initial high sen trop of 280. Chest xray was read as "No acute process.". CTA of the chest with PE protocol was read as "No acute abnormality and in particular no evidence of pulmonary embolus.". ECG showed sinus tachycard ia without acute ST segment or T-wave changes. Prior to admission the patient was given 324 mg Aspirin. We were asked to admit the patient for ongoing evaluation and treatment of tachycardia and elevated troponin level. At the time of the exam the patient was sitting in bed in no acute distress. She states that she has been more stressed recently as she has been very busy at work as a [employer], they have been understaffed. She started to develop what she describes as a left sided headache/migraine approximately 24 hours ago. Her headache is located on the left front aspect of her head. She has been nauseous at times but denies vomiting. She denies changes in vision, hearing, taste, and smell. She denies recent vision changes and paresthesias. She has noticed her headache moving down into her left neck but denies radiation of the pain anywhere else. She has used tylenol and ibuprofen for her pain with minimal improvement. She feels as though this headache/migraine is more severe than her normal ones. She started to develop heart palpitations/tachycardia which began last night. She states that while these palpitations occurred she experienced left-sided chest tightness/discomfort. She is unsure if the left-sided neck pain is related to her headache or chest discomfort. She currently has mild, 1-2, chest tightness in the left chest at this time. She denies a previous hx of cardiac disease, palpitations, or hx of sudden cardiac before the age of 50 in her family. She denies alcohol and tobacco use as well. Her only recent medication change is an increase in the dose of her control approximately 3 weeks ago. This is to help with controlling hot flashes. Please refer to Dr. Talbert's attestation for any changes to the treatment plan Discharge Data Allergies Allergy/AdvReac Type Severity Reaction Status Date / Time morphine Allergy Intermediate rash Verified 11/28/22 12:15 Consultations 11/28/22 12:07 ED Decision to Admit Stat 11/28/22 13:05 Consult Cardiology Routine Ordered Studies 11/28/22 11:08 CT angio chest PE protocol Stat Hospital Course (1) Elevated troponin: Possible demand ischemia -Admit to med/tele -Currently stable with HR in the high 90's- low 100's -Initial high sen trop elevated at 280, repeat 2 hour trop at 240 -ECG shows sinus tachycardia without acute ST segment or t-wave changes -At this time the etiology of her elevated trop appears more associated with demand than ACS -CTA of the chest was negative for PE, no ischemic changes on ECG, patient's trop is trending down -S/P 324 mg Aspirin in the ED -Patient with minimal chest tightness in the left upper chest at this time -Will obtain STAT TTE for further assessment -Will consult cardiology for further assistance and need for possible stress test -Will place 0.25 inches of 2% nitroglycerine paste to see if this gives her relief of her chest tightness -Continue to monitor on tele, will continue to trend trops in 6 hours to ensure it's still downtrending -SQ lovenox for DVT PPX -HH diet -AM CBC, BMP, PT/INR (2) Sinus tachycardia: -Has been in sinus tachycardia with HR in the high 90's-120's since arrival -Unsure of the etiology at this time but the differential includes, dehydration, hypokalemia, ACS, CHF, discomfort due to headache/migraine, and anxiety -Potassium found to be 3.2, mag obtained on admission is 1.8 -TSH added on admission is in process, nikita follow up -Will give 40 meq PO KCL and 10 meq IV KCL x 2 doses now -Will also give 2gm IV mag sulfate for low-normal mag level, hypokalemia, and migraine -Will order 1L LR bolus now and allow her to eat -Monitor on tele, will follow up on TTE (3) Headache: -Likely due to stress, will obtain full respiratory biofire for further evaluation -No focal neuro defects on exam and patient denies other neurologic symptoms -Will give 650 mg PO Tylenol, 2gm IV mag sulfate, and 1L LR, monitor for improvement (4) Hypokalemia: -3.2 in the ED -Unsure of etiology, may be due to poor oral intake as she is not on diuretics -Will give 10 meq IV KCL x 2 doses and 40 meq PO KCL on admission -Will give 2gm IV mag sulfate on admission -Monitor am electrolytes (5) Symptomatic menopausal or female climacteric states: -Continue control for menopausal symptoms (6) Asthma: -Prn Xopenex for wheezing to prevent further tachycardia for now (7) Anxiety: -Continue sertraline Plan The patient was discussed with Dr. Talbert at the time of the admission Discharge Plan Discharge Items Reason For Visit: ELEVATED TROP, TACHYCARDIA Follow-up/Referrals: Luz Tineo CRNP [Primary Care Provider] - Medications and DC Order Prescriptions: No Action fluticasone propionate [Allergy Relief (fluticasone)] 50 mcg/actuation spray,suspension 2 spray INTNAS DAILY Qty: 9.9 5RF albuterol sulfate [ProAir HFA] 90 mcg/actuation HFA aerosol inhaler 2 puff INH QID PRN (Reason: shortness of breath) Qty: 8.5 5RF sertraline 100 mg tablet 100 mg PO DAILY Qty: 90 3RF hydroxyzine HCl 25 mg tablet See Rx Instructions PO TID PRN (Reason: anxiety) Qty: 90 2RF Rx Instructions: 1 - 2 tablets orally three times a day PRN; triamcinolone acetonide 0.1 % cream See Rx Instructions topical BID PRN (Reason: rash) Qty: 30 2RF Rx Instructions: Apply a small amount to palms topical twice a day PRN; norethindrone-e.estradiol-iron [Haley Fe 1.5/30 (28)] 1.5 mg-30 mcg (21)/75 mg (7) tablet 1 tab PO DAILY cetirizine [Zyrtec] 10 mg Tablet 10 mg PO DAILY acetaminophen [Tylenol Extra Strength] 500 mg Tablet 1,000 mg PO Q6H PRN (Reason: Fever Or Pain) ibuprofen 200 mg Tablet 400 mg PO Q6H PRN (Reason: Fever Or Pain) Admission Data Admit Date/Time: 11/28/22 12:20 Attending Provider: Patrick Serrano Admit Provider: Jagdeep Talbert Primary Care Provider: Luz Tineo Other Providers: Jagdeep Talbert ; Maynor Alexander Coding Diagnoses Elevated troponin R77.8 Sinus tachycardia R00.0 Headache R51.9 Hypokalemia E87.6 Symptomatic menopausal or female climacteric states N95.1 Asthma J45.909 Anxiety F41.9
[2022-11-29] MEDS: ENOXAPARIN INJ 40 MG/0.4 ML SYR SQ SCH (14:03)
--- NOTE | 2022-11-29 14:44 | Electrocardiogram Report ---
Test Reason : Blood Pressure : / mmHG Vent. Rate : 107 BPM Atrial Rate : 107 BPM P-R Int : 158 ms QRS Dur : 076 ms QT Int : 322 ms P-R-T Axes : 043 029 017 degrees QTc Int : 429 ms Sinus tachycardia Otherwise normal ECG No previous ECGs available Confirmed by Maynor Alexander ([id number]) on 11/29/2022 2:43:35 PM Referred By: Confirmed By:Lewis Alexander
--- NOTE | 2022-11-29 17:27 | Communication Note ---
Date of Service: November 29, 2022 pt hallucinating and febrile dc cancelled
[2022-11-29 19:09] LABS: Procalcitonin 0.21 ng/ml (0-0.5)
[2022-11-29 19:15] LABS: Lyme Ab IgG w/WB Rflx Negative (Negative)
[2022-11-29 19:21] LABS: Lyme Ab IgM w/WB Rflx Positive (Negative)
[2022-11-29] MEDS: DOXYCYCLINE HYCLATE 100 MG CAP PO SCH (20:16)
--- NOTE | 2022-11-29 22:20 | Hospitalist Progress Note ---
Date of Service November 29, 2022 Assessment & Plan (1) Elevated troponin: Plan: Possible demand ischemia -Admit to med/tele -Currently stable with HR in the high 90's- low 100's -Initial high sen trop elevated at 280, repeat 2 hour trop at 240 -ECG shows sinus tachycardia without acute ST segment or t-wave changes -At this time the etiology of her elevated trop appears more associated with demand than ACS -CTA of the chest was negative for PE, no ischemic changes on ECG, patient's trop is trending down -S/P 324 mg Aspirin in the ED -Patient with minimal chest tightness in the left upper chest at this time -reviewed TTE -Will consult cardiology for further assistance and need for possible stress test -Will place 0.25 inches of 2% nitroglycerine paste to see if this gives her relief of her chest tightness -Continue to monitor on tele, will continue to trend trops in 6 hours to ensure it's still downtrending -SQ lovenox for DVT PPX -HH diet -AM CBC, BMP, PT/INR plan was to discharge as trop peaked at 500, however due to fever and mailainse. Ordered tick borne illness workup and cultures. (2) Sinus tachycardia: Plan: -Has been in sinus tachycardia with HR in the high 90's-120's since arrival -Unsure of the etiology at this time but the differential includes, dehydration, hypokalemia, ACS, CHF, discomfort due to headache/migraine, and anxiety -Potassium found to be 3.2, mag obtained on admission is 1.8 -TSH added on admission is in process, nikita follow up -Will give 40 meq PO KCL and 10 meq IV KCL x 2 doses now -Will also give 2gm IV mag sulfate for low-normal mag level, hypokalemia, and migraine -Will order 1L LR bolus now and allow her to eat -Monitor on tele, will follow up on TTE (3) Headache: Plan: -Likely due to stress, will obtain full respiratory biofire for further evaluation -No focal neuro defects on exam and patient denies other neurologic symptoms -Will give 650 mg PO Tylenol, 2gm IV mag sulfate, and 1L LR, monitor for improvement (4) Hypokalemia: Plan: -3.2 in the ED -Unsure of etiology, may be due to poor oral intake as she is not on diuretics -Will give 10 meq IV KCL x 2 doses and 40 meq PO KCL on admission -Will give 2gm IV mag sulfate on admission -Monitor am electrolytes (5) Symptomatic menopausal or female climacteric states: Plan: -Continue control for menopausal symptoms (6) Asthma: Plan: -Prn Xopenex for wheezing to prevent further tachycardia for now (7) Anxiety: Plan: -Continue sertraline Plan Admission and Anticipated Discharge Date Admission Date: November 28, 2022 Subjective Patient initially reported feeling well and wanted to be discharged. However, later in the hospital stay patient reported having more generalized malaise and was requesting to be discharged. Review of Systems Review of Systems: All systems reviewed & are unremarkable except as noted in HPI & below Physical Exam Physical Exam: General: In no acute distress, stated age, well-nourished, good hygiene HEENT: Normocephalic, atraumatic, no scleral icterus, pupils around round, symmetrical, and reactive to light, no tenderness to palpation of the frontal or maxillary sinuses, moist mucus membranes, trachea midline, no thyromegaly Chest/Pulm: No respiratory distress, symmetrical chest expansion, clear breath sounds throughout Cardiac: RRR, no murmurs noted Abdomen: Negative for ascites and bruising, normoactive bowel sounds, soft, non- tender to palpation throughout Musculoskeletal: Symmetrical and without signs of acute trauma, upper and lower extremities with full ROM, no atrophy, spasticity, or flaccidity Extremities: Radial, dorsalis pedis, and posterior tibial pulses are intact and symmetrical, no edema noted in the BL LE's Skin: Warm, dry, no rashes , lesions, or scars noted Neuro: Alert and oriented to person, place, month, year, and president, no focal defects, CN II-XII tested and intact, patient did experience an intermittent episode of vertigo during EOM testing, finger to nose test negative, no tremors noted Psych: No acute distress, calm and cooperative during the exam Results & Data Results & Data Vital Signs (Past 12 Hours) Vital Signs Temp Pulse Resp BP Pulse Ox O2 Del Method 11/29/22 19:38 36.9 C 102 H 18 127/65 92 Room Air 11/29/22 19:54 94 H 18 97 Room Air 11/29/22 17:00 37.8 C H 11/29/22 15:58 39.0 C H 109 H 18 116/74 98 Room Air 11/29/22 11:35 36.7 C 98 H 18 117/77 100 Room Air 11/29/22 11:26 101 H 18 97 Room Air PG Care Time/CCT Total # of Minutes Spent Total Time Spent with Patient: Total time spent is greater than 50% in coordination of care (as documented) at patient's floor/unit and/or counseling patient: Coding Level of Care Code 75509 SUB INP/OBS CARE 2/35MIN Diagnoses Elevated troponin R77.8 Sinus tachycardia R00.0 Headache R51.9 Hypokalemia E87.6 Symptomatic menopausal or female climacteric states N95.1 Asthma J45.909 Anxiety F41.9
[2022-11-30] MEDS: ACETAMINOPHEN 325 MG TAB PO PRN ×2 (03:16→09:25)
[2022-11-30] MEDS: BENZONATATE 100 MG CAPSULE PO PRN (03:16)
[2022-11-30 07:06] LABS: Basophils # (auto) 0.02 K/uL (0.00-0.20); Basophils % (auto) 0.3 %; Eosinophils # (auto) 0.03 K/uL (0.00-0.50); Eosinophils % (auto) 0.4 %; Hematocrit (blood only) 36.3 % (37.0-47.0); Hemoglobin 12.1 g/dl (12.0-16.0); Immature Granulocytes # (auto) 0.02 K/uL (0.01-0.20); Immature Granulocytes % (auto) 0.3 %; Lymphocytes # (auto) 0.72 K/uL (1.20-3.40); Lymphocytes % (auto) 10.5 %; Mean Corpuscular Hgb Conc 33.3 g/dL (32.0-36.0); Mean Corpuscular Volume 90.1 fL (80.0-100.0); Mean Platelet Volume 10.8 fL (9.4-12.4); Monocytes # (auto) 0.58 K/uL (0.11-0.59); Monocytes % (auto) 8.4 %; Neutrophils # (auto) 5.51 K/uL (1.40-6.50); Neutrophils % (auto) 80.1 %; Platelet Count 181 K/uL (130-400); RDW Standard Deviation 43.1 fL (36.4-46.3); Red Blood Count 4.03 M/uL (4.20-5.40); White Blood Count 6.88 K/ul (4.8-10.8)
[2022-11-30 07:33] LABS: BUN Creatinine Ratio 10.4 (10-20); Creatinine Clr Calc Pharmacy 155.1 ml/min; Est GFR (African American) 136.3 ml/min; Est GFR (Non-African American) 117.6 ml/min; Magnesium 2.2 mg/dl (1.7-2.4); Potassium 3.9 mmol/L (3.5-5.1)
[2022-11-30] MEDS: CETIRIZINE HCL 10 MG TABLET PO SCH (09:26)
[2022-11-30] MEDS: SERTRALINE HCL 100 MG TABLET PO SCH (09:26)
[2022-11-30] MEDS: DOXYCYCLINE HYCLATE 100 MG CAP PO SCH (09:26)
--- NOTE | 2022-11-30 10:48 | Cardiology Progress Note ---
Date of Service November 30, 2022 Assessment & Plan (1) Lyme disease: (2) Sinus tachycardia: (3) Asthma: (4) Headache: Plan Katja is a 46 y/o female with PMHx of Asthma, ADHD, anxiety, Meniere's disease, and Menopausal symptoms managed with OCPs (dose increased ~3 weeks ago) that was admitted due to chest discomfort, palpitations, and general tiredness. On evaluation today, she was found to be alone, afebrile, ill-appearing, AAOx3, and in no acute distress. She refers persistent malaise and coughing, as well as improved but persistent chest pain that is worse when she coughs. No left upper extremity pain or jaw pain like she was describing before. Troponins have been following a decreasing trend and labs have shown no leukocytosis, no anemia, stable platelets, no significant electrolyte abnormalities and renal markers within adequate range. Lyme disease IgM antibody was positive, which provides a possible explanation for the patient's current presentation and the increase in cardiac biomarkers (possible myocarditis). She was started on Doxycycline 100mg PO bid yesterday as management. Since her symptoms may be attributed to this new diagnosis, I believe no coronary evaluation is required at this time. For possible myocarditis, it is advisable for the patient to rest and abstain from strenuous exercise for a few weeks. She would benefit from symptomatic management and continued antibiotic therapy with Doxycycline for management of her Lyme disease. Admission and Anticipated Discharge Date Admission Date: November 28, 2022 Esa Hightower is a 46 y/o female with PMHx of Asthma, ADHD, anxiety, Meniere's disease, and Menopausal symptoms managed with OCPs (dose increased ~3 weeks ago) that comes to the ED due to chest discomfort, palpitations, and tiredness. Sunday morning (11/27/22) she began to have left sided headaches that are band- like and has an average of 5/10 in intensity. Associated to this she has been ex periencing nausea, tiredness, left-sided chest tightness, left-sided neck tightness, and coughing that occurs when she takes a deep breath. She has tried to control her headaches using Tylenol and Ibuprofen with no success, and she tried to use her Albuterol rescue inhaler to try and relieve her chest tightness also without success. Her headache was not preceded by an aura such as vision changes or any other changes. Due to her feeling ill and her nausea, she has not been able to eat very well and has not drunk a lot of water, but has consumed amado lucas. She has been using an at-home pulse ox machine since she started feeling ill, and noticed that her pulse was ranging between 100 and 130, which prompted her to call her PCPs office to schedule and appointment for evaluation, but when she told them she was also experiencing chest discomfort, they advised her to come to the ED instead. On arrival, she was noted to be tachycardic in the 120s but was clinically stable. D-dimer was ordered due to her Hx of OCP use, which was elevated at 6900. CTA was negative for PE and CXR was negative for an acute process. EKG performed in the ED was also ordered which showed sinus tachycardia with a rate of 107, but no ST segment elevations or depressions or significant T wave abnormalities. Troponins were slightly elevated at 280.7 and decreased to 243.6 after a few hours. Today, she was evaluated at bedside and found alone, tired, afebrile, AAOx3, and in no acute distress. She reports still feeling unwell and had a fever of 38.3 C earlier today that was controlled with Tylenol. She reports improvement with regards to her chest pain but states it is still present especially when she coughs, but no jaw or arm pain. After coughing, she also has a brief episode of SOB that resolves spontaneously. She has not wished to use an albuterol inhaler due to concerns it may worsen her tachycardia. She has been able to walk to the bathroom without significant SOB, FLORES, or chest pain. Has been able to void without issues. Appetite remains poor due to feeling unwell, and she has tried to increase her consumption of water. She denies seeing or speaking with people that are not there. She denies abdominal pain or discomfort, weakness, dizziness, dysuria, diarrhea, or any other symptom. Review of Systems Review of Systems: As per HPI. Physical Exam Physical Exam: General: ill-appearing, tired, afebrile, well hydrated, calm, alert, oriented in all spheres, no acute distress HEENT: SHAUN, EOM intact, anicteric sclera, no conjunctival injection, nasal congestion, no thyromegaly, trachea midline Chest: symmetric expansions with respirations, no abnormalities to percussion, no pain on palpation of chest wall, no deformity or discoloration to suggest trauma Respiratory: CTA bilaterally, no respiratory distress Cardio: RRR, no rubs/murmurs/gallops, no chest pain when sitting up vs laying down Abdominal: soft and depressible, somewhat distended, non-tender in all four quadrants, active bowel sounds, no suprapubic tenderness Extremity: no swelling and negative Homans's bilaterally, no visible deformity, no cyanosis or discoloration, no changes in temperature Skin: warm, slightly clammy skin, pink, no visible rashes Results & Data Vital Signs (Past 12 Hours) Vital Signs Temp Pulse Pulse Resp BP Pulse Ox O2 Del Method 11/30/22 08:45 36.8 C 89 17 109/70 96 Room Air 11/30/22 07:16 89 11/30/22 05:48 102/67 11/30/22 02:45 38.3 C H 109 H 16 90/55 L 97 Room Air 11/29/22 22:31 36.8 C 94 H 18 102/59 L 97 Room Air 11/29/22 23:19 102 H PG Care Time/CCT Total # of Minutes Spent Total Time Spent with Patient: Total time spent is greater than 50% in coordination of care (as documented) at patient's floor/unit and/or counseling patient: Coding Diagnoses Lyme disease A69.20 Sinus tachycardia R00.0 Asthma J45.909 Headache R51.9 Resident Activity Tracking Resident Involvement: Resident Care Provided Care Provided: Adult Hospital Medicine
--- NOTE | 2022-11-30 11:22 | Discharge Summary ---
Date of Service November 30, 2022 Principal Diagnosis Lyme disease Discharge Exam General: In no acute distress, stated age, well-nourished, good hygiene HEENT: Normocephalic, atraumatic, no scleral icterus, pupils around round, symmetrical, and reactive to light, no tenderness to palpation of the frontal or maxillary sinuses, moist mucus membranes, trachea midline, no thyromegaly Chest/Pulm: No respiratory distress, symmetrical chest expansion, clear breath sounds throughout Cardiac: RRR, no murmurs noted Abdomen: Negative for ascites and bruising, normoactive bowel sounds, soft, non- tender to palpation throughout Psych: No acute distress, calm and cooperative during the exam Discharge Data Allergies Allergy/AdvReac Type Severity Reaction Status Date / Time morphine Allergy Intermediate rash Verified 11/28/22 12:15 Consultations 11/28/22 12:07 ED Decision to Admit Stat 11/28/22 13:05 Consult Cardiology Routine Ordered Studies 11/28/22 11:08 CT angio chest PE protocol Stat Hospital Course (1) Lyme disease: Patient with preliminary results suggesting lyme disease. This would explain the tachycardia, demand ischemia, fever. Symptoms and vitals improved after initiating doxycyline. (2) Elevated troponin: Possible demand ischemia -Admit to med/tele -Currently stable with HR in the high 90's- low 100's -Initial high sen trop elevated at 280, repeat 2 hour trop at 240 -ECG shows sinus tachycardia without acute ST segment or t-wave changes -At this time the etiology of her elevated trop appears more associated with demand than ACS -CTA of the chest was negative for PE, no ischemic changes on ECG, patient's trop is trending down -S/P 324 mg Aspirin in the ED -Patient with minimal chest tightness in the left upper chest at this time -reviewed TTE no need for further cardio intervention. Trop peaked at 5000 (3) Sinus tachycardia: -SInus tachycardia likely due to lyme disease. (4) Headache: -Likely due to stress, will obtain full respiratory biofire for further evaluation -No focal neuro defects on exam and patient denies other neurologic symptoms (5) Hypokalemia: -3.2 in the ED -Unsure of etiology, may be due to poor oral intake as she is not on diuretics -Will give 10 meq IV KCL x 2 doses and 40 meq PO KCL on admission -Will give 2gm IV mag sulfate on admission -Monitor am electrolytes (6) Symptomatic menopausal or female climacteric states: -Continue control for menopausal symptoms (7) Asthma: -Prn Xopenex for wheezing to prevent further tachycardia for now (8) Anxiety: -Continue sertraline Plan Total Time Total Time Spent Total Time Spent (In Minutes): 35 Discharge Plan Discharge Items Patient Disposition: Home - Self-Care Reason For Visit: ELEVATED TROP, TACHYCARDIA Discharge Diagnosis: tachycardia/ lyme disease Activity: Resume your previous activity Non-emergency contact: Primary Care Provider Call non-emergency contact if: you have any medication questions Follow-up/Referrals: Luz Tineo CRNP [Primary Care Provider] - 12/06/22 2:00 pm Diet: Regular Addtl Attending Provider Instructions: recommend followup with PCP in 1-2 weeks Please limit sunlight while on Doxycycline. Please complete 10 days of doxycycline. Pending Studies at Discharge: No Stand-Alone Forms: [employer] Work/School Release, Smoking Cessation Medications and DC Order Prescriptions: New benzonatate 100 mg Capsule 100 mg PO TID PRN (Reason: cough) Qty: 30 0RF doxycycline hyclate 100 mg Capsule 100 mg PO BID Qty: 19 0RF Continued fluticasone propionate [Allergy Relief (fluticasone)] 50 mcg/actuation spray,suspension 2 spray INTNAS DAILY Qty: 9.9 5RF sertraline 100 mg tablet 100 mg PO DAILY Qty: 90 3RF hydroxyzine HCl 25 mg tablet See Rx Instructions PO TID PRN (Reason: anxiety) Qty: 90 2RF Rx Instructions: 1 - 2 tablets orally three times a day PRN; triamcinolone acetonide 0.1 % cream See Rx Instructions topical BID PRN (Reason: rash) Qty: 30 2RF Rx Instructions: Apply a small amount to palms topical twice a day PRN; norethindrone-e.estradiol-iron [Haley Fe 1.5/30 (28)] 1.5 mg-30 mcg (21)/75 mg (7) tablet 1 tab PO DAILY cetirizine [Zyrtec] 10 mg Tablet 10 mg PO DAILY acetaminophen [Tylenol Extra Strength] 500 mg Tablet 1,000 mg PO Q6H PRN (Reason: Fever Or Pain) ibuprofen 200 mg Tablet 400 mg PO Q6H PRN (Reason: Fever Or Pain) albuterol sulfate [ProAir HFA] 90 mcg/actuation HFA aerosol inhaler 2 puff INH QID PRN (Reason: shortness of breath) Qty: 8.5 5RF Discharge Orders: Discharge Order (Routine); Ordered 11/30/22 Ordered By: Patrick Serrano Admission Data Admit Date/Time: 11/28/22 12:20 Attending Provider: Patrick Serrano Admit Provider: Jagdeep Talbert Primary Care Provider: Luz Tineo Other Providers: Jagdeep Talbert ; Maynor Alexander Coding Level of Care Code 74776 INP/OBS DISCH >30 MIN Diagnoses Lyme disease A69.20 Elevated troponin R77.8 Sinus tachycardia R00.0 Headache R51.9 Hypokalemia E87.6 Symptomatic menopausal or female climacteric states N95.1 Asthma J45.909 Anxiety F41.9
[2022-11-30] MEDS: ENOXAPARIN INJ 40 MG/0.4 ML SYR SQ SCH (12:15)
--- NOTE | 2022-11-30 18:02 | Electrocardiogram Report ---
Test Reason : Blood Pressure : / mmHG Vent. Rate : 098 BPM Atrial Rate : 098 BPM P-R Int : 162 ms QRS Dur : 076 ms QT Int : 338 ms P-R-T Axes : 047 058 012 degrees QTc Int : 431 ms Normal sinus rhythm Normal ECG When compared with ECG of 28-NOV-2022 10:03, (unconfirmed) No significant change was found Confirmed by Maynor Alexander ([id number] on 11/30/2022 6:01:59 PM Referred By: REFERRED SELF Confirmed By:Lewis Alexander
[2022-12-03 21:33] LABS: Babesia microti DNA Not Detected (Not Detected)
[2022-12-04 15:07] LABS: 18KDIGG Band NON-REACTIVE; 23KDIGG Band NON-REACTIVE; 23KDIGM Band REACTIVE; 28KDIGG Band NON-REACTIVE; 30KDIGG Band NON-REACTIVE; 39KDIGG Band NON-REACTIVE; 39KDIGM Band NON-REACTIVE; 41KDIGG Band NON-REACTIVE; 41KDIGM Band NON-REACTIVE; 45KDIGG Band NON-REACTIVE; 58KDIGG Band NON-REACTIVE; 66KDIGG Band NON-REACTIVE; 93KDIGG Band NON-REACTIVE; Lyme Antibodies, WB IgG NEGATIVE (NEGATIVE); Lyme Antibodies, WB IgM NEGATIVE (NEGATIVE)
== END 2022-11-30 15:12 | disposition home or self-care (01) ==
LOC: ED 09:43 → SUATTDRO 12:20 → INTOOBSV 12:20 → EDINP 12:20 → 2N 12:38